=== PATIENT | female | born 1990 | race Caucasian/White ===

== ENCOUNTER → 2021-08-17 14:44 | Observation (INO) ==
[2021-08-17 13:29] VITALS: O2SAT 99
[2021-08-17 14:02] VITALS: TEMP 98.4
[2021-08-17 14:16] VITALS: BP 95/64; PULSE 75
[~2021-08-17 14:44] MED LIST: *HR* FentaNYL (PF) 100 MCG/2 ML VIAL ONE; *HR* HYDROcodone/Acet 5/325 mg TABLET PO ONE; *HR* HYDROmorphone PF 0.5 MG/0.5 ML SYRINGE IVP PRN; *HR* Midazolam HCl 2 MG/2 ML VIAL ONE; *HR* Propofol 200 MG/20 ML VIAL IVP ONE; Acetaminophen IV 1,000 MG/100 ML BAG IVPB ONE; CeFAZolin 2,000 MG/120 ML BAG IVPB ONE; Lidocaine -MPF 2% 5 ML VIAL ONE; Methylergonovine 0.2 MG/ML AMPUL IM ONE; Naloxone 0.4 MG/ML INJ IVP PRN; Ondansetron 4 MG/2 ML VIAL IVP PRN; Ondansetron 4 MG/2 ML VIAL ONE; Promethazine 6.25 MG in Water for inj. (sterile) 20 ML IVPB PRN; Ringers Solution, Lactated 1,000 ML IVC ONE; Ringers Solution, Lactated 1,000 ML IVC SCH
== END | disposition home or self-care (01) ==
LOC: 1NENULAB
PROVIDERS: ADMIT Obstetrics & Gynecology; ATTEND Obstetrics & Gynecology